=== PATIENT | male | born 1975 | race African-American/Black ===

== ENCOUNTER 2016-11-07 00:39 | Emergency (ER) | payer BC ==
[~2016-11-07] VITALS: Ht 190.5 cm; Wt 95.3 kg
--- NOTE | 2016-11-07 01:09 | PHYS DOC ---
Past Medical History Past Medical History: Hypertension, Kidney Stone Past Surgical History: No Surgical History Additional Information: non smoker Additional Information: Adult General Chief Complaint Chief Complaint: ABDOMINAL PAIN HPI HPI Patient is a 41 year old male who presents with left flank pain. Started at 2330 PM tonight. Left flank with some radiation around front. No testicular pain or swelling noted. He has had dry heaves tonight. He is straining with urination. He has had prior kidney stones in the past. No recent travel. No fever. Review of Systems Review of Systems Constitutional: Denies fever or chills Eyes: Denies change in visual acuity, redness, or eye pain HENT: Denies nasal congestion or sore throat Respiratory: Denies cough or shortness of breath Cardiovascular: No chest pain GI:See HPI; no bloody stools or diarrhea : Denies hematuria but urinary hesitancy noted Musculoskeletal: Denies back pain or joint pain Integument: Denies rash or skin lesions Neurologic: Denies headache, focal weakness or sensory changes Current Medications Current Medications Current Medications Medications (Trade) Dose Ordered Sig/Narda Start Time Stop Time Status Last Admin Dose Admin Ciprofloxacin (Cipro) 500 mg 1X ONCE 11/07/16 02:15 11/07/16 02:16 DC 11/07/16 02:18 500 MG Fentanyl Citrate (Fentanyl 2ml Vial) 50 mcg PRN Q15MIN PRN 11/07/16 01:15 11/07/16 02:36 DC 11/07/16 02:04 50 MCG Hydromorphone HCl (Dilaudid) 0.5 mg PRN Q15MIN PRN 11/07/16 01:15 11/07/16 02:36 DC 11/07/16 01:35 0.5 MG Ketorolac Tromethamine (Toradol) 30 mg 1X ONCE 11/07/16 02:15 11/07/16 02:16 DC 11/07/16 02:19 30 MG Ondansetron HCl (Zofran) 4 mg 1X ONCE 11/07/16 01:15 11/07/16 01:16 DC 11/07/16 01:33 4 MG Sodium Chloride 1,000 ml @ 1,000 mls/hr Q1H 11/07/16 01:15 11/07/16 02:14 DC 11/07/16 01:35 1,000 MLS/HR Tamsulosin HCl (Flomax) 0.4 mg 1X ONCE 11/07/16 02:15 11/07/16 02:16 DC 11/07/16 02:18 0.4 MG Allergies Allergies Allergies Coded Allergies Type Severity Reaction Last Updated Verified No Known Drug Allergies 11/07/16 No Physical Exam Physical Exam Constitutional: Well developed, well nourished, no acute distress, non-toxic appearance. HENT: Normocephalic, atraumatic, bilateral external ears normal, oropharynx moist, no oral exudates, nose normal. Eyes: PERRLA, EOMI, conjunctiva normal, no discharge. Neck: Normal range of motion, no tenderness, supple, no stridor. Cardiovascular:Heart rate regular rhythm, no murmur Lungs & Thorax: Bilateral breath sounds clear to auscultation Abdomen: Bowel sounds normal, soft, no tenderness, no masses, no pulsatile masses. Skin: Warm, dry, no erythema, no rash. Back: No tenderness, no CVA tenderness. Extremities: No tenderness, no cyanosis, no clubbing, ROM intact, no edema. Neurologic: Alert and oriented X 3, normal motor function, normal sensory function, no focal deficits noted. Current Patient Data Vital Signs Vital Signs Date Time Temp Pulse Resp B/P (MAP) Pulse Ox O2 Delivery O2 Flow Rate FiO2 11/07/16 02:26 67 20 131/84 (100) 98 Room Air 11/07/16 00:55 97.8 97.8 Lab Values Laboratory Tests Test 11/07/16 01:00 White Blood Count 9.6 x10^3/uL (4.0-11.0) Red Blood Count 4.84 x10^6/uL (4.30-5.70) Hemoglobin 14.3 g/dL (13.0-17.5) Hematocrit 43.0 % (39.0-53.0) Mean Corpuscular Volume 89 fL (79-100) Mean Corpuscular Hemoglobin 30 pg (25-35) Mean Corpuscular Hemoglobin Concent 33 g/dL (31-37) Red Cell Distribution Width 14.1 % (11.5-14.5) Platelet Count 235 x10^3/uL (140-400) Neutrophils (%) (Auto) 37 % (31-73) Lymphocytes (%) (Auto) 51 % (24-48) H Monocytes (%) (Auto) 10 % (0-9) H Eosinophils (%) (Auto) 1 % (0-3) Basophils (%) (Auto) 1 % (0-3) Neutrophils # (Auto) 3.5 x10^3uL (1.8-7.7) Lymphocytes # (Auto) 4.9 x10^3/uL (1.0-4.8) H Monocytes # (Auto) 0.9 x10^3/uL (0.0-1.1) Eosinophils # (Auto) 0.1 x10^3/uL (0.0-0.7) Basophils # (Auto) 0.1 x10^3/uL (0.0-0.2) Urine Collection Type Unknown Urine Color Bettye Urine Clarity Clear Urine pH 5.5 Urine Specific [place] 1.025 Urine Protein Negative mg/dL (NEG-TRACE) Urine Glucose (UA) Negative mg/dL (NEG) Urine Ketones (Stick) Trace mg/dL (NEG) Urine Blood Negative (NEG) Urine Nitrite Negative (NEG) Urine Bilirubin Small (NEG) Urine Urobilinogen Dipstick 1.0 mg/dL (0.2 mg/dL) Urine Leukocyte Esterase Negative (NEG) Urine RBC 3-5 /HPF (0-2) Urine WBC 1-4 /HPF (0-4) Urine Squamous Epithelial Cells Occ /LPF Urine Bacteria 0 /HPF (0-FEW) Urine Hyaline Casts Few /HPF Urine Mucus Marked /LPF Sodium Level 142 mmol/L (136-145) Potassium Level 3.7 mmol/L (3.5-5.1) Chloride Level 102 mmol/L (98-107) Carbon Dioxide Level 31 mmol/L (21-32) Anion Gap 9 (6-14) Blood Urea Nitrogen 14 mg/dL (8-26) Creatinine 1.2 mg/dL (0.7-1.3) Estimated GFR (Cockcroft-Gault) 80.7 Glucose Level 136 mg/dL (70-99) H Calcium Level 9.4 mg/dL (8.5-10.1) Laboratory Tests 11/07/16 01:00 Laboratory Tests 11/07/16 01:00 Radiology/Procedures Radiology/Procedures [address] [facility] [place] [address] IMAGING REPORT Signed PATIENT: NEIL AUGUSTE ACCOUNT: [id number] : 1975 LOCATION: ER AGE: 41 SEX: M EXAM STATUS: REG ER ORD. PHYSICIAN: LUIS ARCHIBALD MD REASON: left flank pain w h/o stones PROCEDURE: CT ABDOMEN PELVIS WO CONTRAST Examination: CT of the abdomen pelvis without contrast HISTORY: History of left flank pain COMPARISON: None available TECHNIQUE: Axial CT images of the abdomen pelvis were performed without contrast. Coronal and sagittal reformats are performed Exposure: One or more of the following individualized dose reduction techniques were utilized for this examination: 1. Automated exposure control 2. Adjustment of the mA and/or kV according to patient size 3. Use of iterative reconstruction technique FINDINGS: The visualized bibasilar lungs grossly appears unremarkable. No evidence of free air identified in the abdomen. The evaluation of the solid organs is limited due to lack of IV contrast. The evaluation of bowel is limited due to lack of oral contrast. The visualized noncontrasted liver, spleen, adrenals grossly appears unremarkable. The gallbladder is mildly distended. The stomach is mildly distended. The visualized pancreas grossly appears unremarkable. The small bowel is nondilated. The appendix is normal. Feces and gas noted in the colon. No evidence of intrarenal collecting system calculus identified. There is minimal left-sided hydronephrosis and hydroureter identified with 3.3 mm calculus identified in the distal left ureter just proximal to the left uterovesical junction. Urinary bladder is mildly distended. No evidence of lytic bony destructive lesion. Few calcified pelvic phleboliths identified. IMPRESSION: 1. A 3.3 mm calculus identified in the distal left ureter just proximal to the left ureterovesical junction with minimal left-sided hydronephrosis and hydroureter. Electronically signed by: Nicholas Stokes MD (11/07/2016 1:37 AM) [facility] DICTATED and SIGNED BY: NICHOLAS STOKES MD DATE: 11/07/16 0131 CC: LUIS ARCHIBALD MD; NANO HERNANDEZ Course & Med Decision Making Course & Med Decision Making Pertinent Labs and Imaging studies reviewed. (See chart for details) Evaluated patient. Symptoms c/w prior kidney stones. IV pain meds dosed (he will get a ride) and CT ordered. My differential for abdominal pain includes but is not limited to appendicitis; cholelithiasis or cholecystitis; renal stones; ureterolithiasis; pancreatitis; urinary tract infection; bowel obstruction; irritable bowel. CT results back with 3.3 mm stone. Dosed here with Toradol 30 IV and flomax po. Will d/c home w flomax, cipro, zofran and hydrocodone. Referral to Urology. He is getting a ride home. I have spoken with the patient and/or caregivers. I have explained the patient' s condition, diagnosis and treatment plan based on the information available to me at this time. I have answered the patient's and/or caregiver's questions and addressed any concerns. The patient and/or caregivers have as good an understanding of the patient's diagnosis, condition and treatment plan as can be expected at this point. The patient's condition is stable and appropriate for discharge from the emergency department. The patient will pursue further outpatient evaluation with the primary care physician or other designated or consulting physician as outlined in the discharge instructions. The patient and/or caregivers are agreeable to this plan of care and follow-up instructions have been explained in detail. The patient and/or caregivers have received these instructions in written format and have expressed an understanding of the discharge instructions. The patient and/or caregivers are aware that any significant change in condition or worsening of symptoms should prompt an immediate return to this or the closest emergency department or a call to 911. Melina Disclaimer Dragon Disclaimer This electronic medical record was generated, in whole or in part, using a voice recognition dictation system. Departure Departure Impression: Primary Impression: Ureterolithiasis Additional Impression: Left flank discomfort Disposition: HOME, SELF-CARE Referrals: NANO HERNANDEZ (PCP) Patient Instructions: Diet for Kidney Stones Additional Instructions: [facility] does not have a urologist presently on staff. Contact your personal physician and they can arrange for outpatient follow up with urology. Strain your urine and save the stone. Scripts Ciprofloxacin Hcl (CIPRO) 500 Mg Tablet 1 TAB PO BID, #14 TAB Prov: LUIS ARCHIBALD MD 11/07/16 Ondansetron (ZOFRAN ODT) 4 Mg Tab.rapdis 1 TAB SL Q8HRS, #15 TAB Prov: LUIS ARCHIBALD MD 11/07/16 Tamsulosin Hcl (FLOMAX) 0.4 Mg Cap.er.24h 0.4 MG PO DAILY for 10 Days, #10 TAB Prov: LUIS ARCHIBALD MD 11/07/16 Hydrocodone Bit/Acetaminophen (HYDROCODONE-APAP 5-300) 1 Each Tablet 1 TAB PO PRN Q6HRS Y for PAIN, #20 TAB 0 Refills Prov: LUIS ARCHIBALD MD 11/07/16 Problem Qualifiers LUIS ARCHIBALD MD Nov 07, 2016 01:09
[2016-11-07 01:14] LABS: BASO # 0.1 x10^3/uL (0.0-0.2); BASO % 1 % (0-3); EOS % 1 % (0-3); HEMOGLOBIN 14.3 g/dL (13.0-17.5); LYMPH # 4.9 x10^3/uL (1.0-4.8); LYMPH % 51 % (24-48); MEAN CORPUSCULAR HEMOGLOBIN 30 pg (25-35); MEAN CORPUSCULAR HGB CONC 33 g/dL (31-37); MEAN CORPUSCULAR VOLUME 89 fL (79-100); MONO % 10 % (0-9); NEUT % 37 % (31-73); PLATELET COUNT 235 x10^3/uL (140-400); RED BLOOD COUNT 4.84 x10^6/uL (4.30-5.70); RED CELL DISTRIBUTION WIDTH 14.1 % (11.5-14.5); WHITE BLOOD COUNT 9.6 x10^3/uL (4.0-11.0)
[2016-11-07] MEDS ORDERED: HYDROmorphone 2 MG/ML VIAL IV/SQ PRN (01:15)
[2016-11-07] MEDS ORDERED: fentaNYL PF VIAL 100 MCG/2 ML VIAL IV PRN (01:15)
[2016-11-07] MEDS ORDERED: ONDANSETRON PF 4 MG/2 ML VIAL. IV ONE (01:15)
[2016-11-07] MEDS ORDERED: IV NORMAL SALINE 1000ML BAG 1,000 ML IV SCH (01:15)
[2016-11-07 01:22] LABS: BACTERIA,URINE 0 /HPF (0-FEW); BILIRUBIN,URINE SMALL (NEG); GLUCOSE,URINE NEGATIVE (NEG); NITRITE,URINE NEGATIVE (NEG); PH,URINE 5.5; PROTEIN,URINE NEGATIVE (NEG-TRACE); SQUAMOUS EPITHELIAL CELL,UR OCC /LPF
[2016-11-07 01:25] LABS: CALCIUM 9.4 mg/dL (8.5-10.1); CREATININE 1.2 mg/dL (0.7-1.3); GFR 80.7; POTASSIUM 3.7 mmol/L (3.5-5.1)
--- NOTE | 2016-11-07 01:40 | RAD ---
Examination: CT of the abdomen pelvis without contrast HISTORY: History of left flank pain COMPARISON: None available TECHNIQUE: Axial CT images of the abdomen pelvis were performed without contrast. Coronal and sagittal reformats are performed Exposure: One or more of the following individualized dose reduction techniques were utilized for this examination: 1. Automated exposure control 2. Adjustment of the mA and/or kV according to patient size 3. Use of iterative reconstruction technique FINDINGS: The visualized bibasilar lungs grossly appears unremarkable. No evidence of free air identified in the abdomen. The evaluation of the solid organs is limited due to lack of IV contrast. The evaluation of bowel is limited due to lack of oral contrast. The visualized noncontrasted liver, spleen, adrenals grossly appears unremarkable. The gallbladder is mildly distended. The stomach is mildly distended. The visualized pancreas grossly appears unremarkable. The small bowel is nondilated. The appendix is normal. Feces and gas noted in the colon. No evidence of intrarenal collecting system calculus identified. There is minimal left-sided hydronephrosis and hydroureter identified with 3.3 mm calculus identified in the distal left ureter just proximal to the left uterovesical junction. Urinary bladder is mildly distended. No evidence of lytic bony destructive lesion. Few calcified pelvic phleboliths identified. IMPRESSION: 1. A 3.3 mm calculus identified in the distal left ureter just proximal to the left ureterovesical junction with minimal left-sided hydronephrosis and hydroureter. Electronically signed by: Nicholas Stokes MD (11/07/2016 1:37 AM) [facility]
[2016-11-07] MEDS ORDERED: CIPR500T94 PO (02:05)
[2016-11-07] MEDS ORDERED: TAMS0.4C97 PO (02:05)
[2016-11-07] MEDS ORDERED: HYDR-2163 PO (02:05)
[2016-11-07] MEDS ORDERED: ONDA4TAB10 SL (02:05)
[2016-11-07] MEDS ORDERED: CIPROFLOXACIN HCL 250 MG TABLET. PO ONE (02:15)
[2016-11-07] MEDS ORDERED: KETOROLAC TROMETHAMINE 30 MG/ML INJ. IV ONE (02:15)
[2016-11-07] MEDS ORDERED: TAMSULOSIN 0.4 MG CAP.ER.24H. PO ONE (02:15)
[2016-11-07 02:26] VITALS: BP 131/84
== END 2016-11-07 02:26 | disposition home or self-care (01) ==
LOC: ER 00:39
DX: N20.1 Calculus of ureter (principal); I10 Essential (primary) hypertension; Z87.442 Personal history of urinary calculi
CPT/HCPCS: 36415; 74176; 80048; 81001; 85025; 96361; 96374; 96375; 99285; J1170; J1885; J2405; J3010; J7030

== ENCOUNTER 2016-11-09 00:24 | Emergency (ER) | payer BC ==
[~2016-11-09] VITALS: Ht 190.5 cm; Wt 95.3 kg
[~2016-11-09 00:24] MED LIST: CIPR500T94 PO; HYDR-2163 PO; ONDA4TAB10 SL; TAMS0.4C97 PO
[2016-11-09 00:55] LABS: BILIRUBIN,URINE NEGATIVE (NEG); GLUCOSE,URINE NEGATIVE (NEG); NITRITE,URINE NEGATIVE (NEG); PROTEIN,URINE NEGATIVE (NEG-TRACE)
[2016-11-09] MEDS ORDERED: IV NORMAL SALINE 1000ML BAG 1,000 ML IV ONE (01:00)
[2016-11-09] MEDS ORDERED: ONDANSETRON PF 4 MG/2 ML VIAL. IV ONE (01:00)
--- NOTE | 2016-11-09 01:00 | PHYS DOC ---
Past Medical History Past Medical History: Hypertension, Kidney Stone Past Surgical History: No Surgical History Alcohol Use: None Drug Use: None Adult General Chief Complaint Chief Complaint: FLANK PAIN HPI HPI 41-year-old gentleman presenting with left flank pain. The pain is moderate intermittent sharp shooting radiating into the groin and without alleviating factors. The patient was seen in our emergency department and diagnosed with nephrolithiasis on the 15th of this month. Review of systems is negative for nausea vomiting fevers or chills. All other review of systems is negative unless otherwise noted in history of present illness. ED course: 41-year-old gentleman presenting with left flank pain consistent with his previous diagnosis of nephrolithiasis. Urinalysis obtained and pain controlled with IV fluids nausea and pain medication. On reexamination the patient was feeling much better and subsequent discharged home to follow-up with urology in 5 days. The patient was then discharged home in stable condition to follow up with their primary care physician over the next 2-3 days. They were to return if their symptoms worsened or if they were concerned for any reason. [id number] discharge instructions and return precautions were given. Patient's questions were answered to their satisfaction. Patient is comfortable plan. Review of Systems Review of Systems SEE ABOVE. Current Medications Current Medications Current Medications Medications (Trade) Dose Ordered Sig/Narda Start Time Stop Time Status Last Admin Dose Admin Hydromorphone HCl (Dilaudid) 0.5 mg PRN Q30MIN PRN 11/09/16 01:00 11/09/16 01:04 0.5 MG Ondansetron HCl (Zofran) 4 mg 1X ONCE 11/09/16 01:00 11/09/16 01:01 DC 11/09/16 01:04 4 MG Sodium Chloride 1,000 ml @ 1,000 mls/hr 1X ONCE 11/09/16 01:00 11/09/16 01:59 11/09/16 01:00 1,000 MLS/HR Allergies Allergies Allergies Coded Allergies Type Severity Reaction Last Updated Verified No Known Drug Allergies 11/07/16 No Physical Exam Physical Exam Constitutional: Well developed, well nourished, no acute distress, non-toxic appearance. [] HENT: Normocephalic, atraumatic, bilateral external ears normal, oropharynx moist, no oral exudates, nose normal. [] Eyes: PERRLA, EOMI, conjunctiva normal, no discharge. [] Neck: Normal range of motion, no tenderness, supple, no stridor. [] Cardiovascular:Heart rate regular rhythm, no murmur [] Lungs & Thorax: Bilateral breath sounds clear to auscultation [] Abdomen: Bowel sounds normal, soft, no tenderness, no masses, no pulsatile masses. [] Skin: Warm, dry, no erythema, no rash. [] Back: No tenderness midline, mild left cva tenderness. Extremities: No tenderness, no cyanosis, no clubbing, ROM intact, no edema. [] Neurologic: Alert and oriented X 3, normal motor function, normal sensory function, no focal deficits noted. [] Psychologic: Affect normal, judgement normal, mood normal. [] Current Patient Data Vital Signs Vital Signs Date Time Temp Pulse Resp B/P (MAP) Pulse Ox O2 Delivery O2 Flow Rate FiO2 11/09/16 01:09 65 16 141/85 (103) 96 Room Air 11/09/16 00:25 98.1 98.1 Lab Values Laboratory Tests Test 11/09/16 00:45 Urine Collection Type Unknown Urine Color Yellow Urine Clarity Clear Urine pH 6.0 Urine Specific [place] >=1.030 Urine Protein Negative mg/dL (NEG-TRACE) Urine Glucose (UA) Negative mg/dL (NEG) Urine Ketones (Stick) Negative mg/dL (NEG) Urine Blood Negative (NEG) Urine Nitrite Negative (NEG) Urine Bilirubin Negative (NEG) Urine Urobilinogen Dipstick 1.0 mg/dL (0.2 mg/dL) Urine Leukocyte Esterase Negative (NEG) Urine RBC Occ /HPF (0-2) Urine WBC Occ /HPF (0-4) Urine Squamous Epithelial Cells Occ /LPF Urine Bacteria 0 /HPF (0-FEW) Urine Mucus Mod /LPF EKG EKG [] Radiology/Procedures Radiology/Procedures [] Course & Med Decision Making Course & Med Decision Making Pertinent Labs and Imaging studies reviewed. (See chart for details) [] Dragon Disclaimer Dragon Disclaimer This electronic medical record was generated, in whole or in part, using a voice recognition dictation system. Departure Departure Impression: Primary Impression: Nephrolithiasis Disposition: 01 HOME, SELF-CARE Condition: STABLE Referrals: NANO HERNANDEZ (PCP) Patient Instructions: Diet for Kidney Stones, Kidney Stones Additional Instructions: Thank you for allowing us to participate in your care today. Followup with your primary care physician in 3 days if your symptoms do not improve. Call your Primary Doctor tomorrow and inform them of your visit today. If you do not have a primary care provider you can ask for a list of our primary care providers. Return to the emergency department you have any new or concerning findings. This should be evaluated by the primary care physician and any necessary consulting services for continued management within a few days after discharge. Return to emergency room if you have any new or concerning symptoms including but not limited to fever, chills, nausea, vomiting, intractable pain, any new rashes, chest pain, shortness of air, uncontrolled bleeding, difficulty breathing, and/or vision loss. You may have been prescribed medication that can change in your level of thinking and ability to operate machinery. These medications include hydrocodone and Ativan. Also, Benadryl has been known to do this as well. Be sure to check with your pharmacist and ask if the medications you've prescribed can affect your level of consciousness. I recommend not operating heavy machinery or driving while on medication such as these. JUDIT BAR MD Nov 09, 2016 01:00
[2016-11-09 01:03] LABS: BACTERIA,URINE 0 /HPF (0-FEW); RBC,URINE OCC /HPF (0-2); SQUAMOUS EPITHELIAL CELL,UR OCC /LPF; WBC,URINE OCC /HPF (0-4)
[2016-11-09] MEDS: HYDROmorphone 2 MG/ML VIAL IV PRN ×2 (01:04→01:39)
[2016-11-09 02:09] VITALS: BP 156/99
== END 2016-11-09 02:13 | disposition home or self-care (01) ==
LOC: ER 00:24
DX: N20.0 Calculus of kidney (principal); I10 Essential (primary) hypertension; Z87.442 Personal history of urinary calculi
CPT/HCPCS: 81001; 96361; 96374; 96375; 96376; 99284; J1170; J2405; J7030